=== PATIENT | female | born 1950 | race Caucasian/White ===

== ENCOUNTER 2018-11-18 11:38 | Emergency (ER) | payer MEDICARE, SELFPAY ==
[2018-11-18 11:39] VITALS: BP 136/74; PULSE 102; RESP 17; TEMP 36.9; O2SAT 95; BMI 22.4
--- NOTE | 2018-11-18 11:58 | EKG12_ITS ---
Test Reason : CP Blood Pressure : / mmHG Vent. Rate : 086 BPM Atrial Rate : 086 BPM P-R Int : 114 ms QRS Dur : 090 ms QT Int : 338 ms P-R-T Axes : 058 065 051 degrees QTc Int : 404 ms Normal sinus rhythm Normal ECG Confirmed by ALIA MG MD ([id number]), order editor LISA CHAN ([id number] on 11/21/2018 8:31:21 AM Referred By: AMANDA
--- NOTE | 2018-11-18 11:58 | RAD_ITS ---
STUDY: X-RAY CHEST REASON FOR EXAM: Female, 68 years old. Chest pain TECHNIQUE: PA and lateral views of the chest. COMPARISON: Prior comparison studies are not available for review at this time. FINDINGS: The lungs are clear and expanded. There is no demonstrated pleural abnormality. Normal size heart. Normal mediastinum and marina. Normal visualized pulmonary arteries. Normal visualized aortic arch and descending thoracic aorta. Normal visualized thoracic spine. Normal visualized ribs, clavicles, and shoulders. There is no demonstrated abnormality of the visualized soft tissue structures of the upper abdomen. RAD/Chest PA and Lateral IMPRESSION: Normal x-ray examination of the chest. Electronically Signed: Jez Pineda MD at 12:32 EST , Service support ,
--- NOTE | 2018-11-18 11:59 | ED.VISSUMM ---
- ER Visit Summary Date of Service: 11/18/18 Chief Complaint: Pain History of Present Illness: The patient is a 68 F who presents for 4 days of left-sided chest pain. Pain is been constant but waxes and wanes in intensity. It is an aching and a tightness. It is worse with exertion, such as when patient was running with her dog yesterday, also worse with bending forward, coughing and breathing. No associated shortness of breath, abdominal pain, radiation of the pain to the right chest or anywhere else, or any other complaints. Patient denies history of coronary artery disease. She does have history of hypertension and hypercholesterolemia. She smokes tobacco. She did not take any aspirin today. Patient also complains of unrelated frequent episodes of d?j? vu that are disturbing to her. Physical Examination: Vital signs: afebrile, hemodynamically stable, no hypoxia on room air General: well nourished, well developed, in no distress Skin: warm, dry, no rash, no pallor HEENT: normocephalic and atraumatic; PERRL, EOMI, moist mucous membranes Cardiovascular: regular rate and rhythm without murmurs, no peripheral edema, 2+ pulses all distal extremities, no chest wall tenderness, no rash Respiratory: No increased work of breathing, lungs are clear to auscultation bilaterally, no rales, rhonchi or wheezing Abdominal: Abdomen is soft, nontender with normoactive bowel sounds, no guarding or rebound, no masses MSK: Moves all extremities, no deformities, normal strength Neuro: Awake and alert, oriented ?4. No facial droop, sensation and motor function intact and symmetric Test Results: Abnormal Lab Results 11/18/18 11/18/18 12:15 12:15 WBC 7.7 RBC 4.54 Hgb 13.7 Hct 40.5 MCV 89.2 MCH 30.2 MCHC 33.8 RDW 12.2 RDW Differential 39.3 Plt Count 203 MPV 10.2 Immature Gran % (Auto) 0.300 Neut % (Auto) 64.6 Lymph % (Auto) 24.5 [place] % (Auto) 7.4 Eos % (Auto) 2.8 Baso % (Auto) 0.4 Absolute Neuts (auto) 5.0 Absolute Lymphs (auto) 1.90 Total Counted Not Reportable Sodium 141 Potassium 4.2 Chloride 107 Carbon Dioxide 28.0 Anion Gap 6 BUN 13 Creatinine 1.13 H Estim Creat Clear Calc 36.95 Est GFR (MDRD) Af Amer 62 Est GFR (MDRD) Non-Af 51 L BUN/Creatinine Ratio 11.5 Glucose 68 L Calcium 9.4 Troponin I < 0.015 TSH 0.54 Clinical Impression(s) from Imaging Studies Chest X-Ray 11/18/18 11:58 IMPRESSION: Normal x-ray examination of the chest. Electronically Signed: Jez Pineda MD at 12:32 EST , Service support , Medications Given Discontinued Medications Aspirin (Aspirin, Baby) 324 mg PO X1 STA Stop: 11/18/18 11:59 Last Admin: 11/18/18 12:14 Dose: 324 mg Sodium Chloride () 1,000 mls @ 1,000 mls/hr IV .Q1H ONE Stop: 11/18/18 12:57 Last Admin: 11/18/18 12:13 Dose: 1,000 mls/hr Emergency Department Course and Treatment: Patient was given 4 baby aspirin. EKG showed a sinus rhythm with no ST or T wave changes. Chest x-ray showed no acute process. Troponin negative. TSH was unremarkable. CBC and CMP showed no significant abnormalities. On reevaluation patient was pain-free. Because she has had this pain constantly for 4 days, it would be expected that there would be an EKG change or troponin bump if this were acute coronary syndrome. Because patient is having worsening of the symptoms with movement, deep breathing and leaning forward, this is most likely related to a chest wall inflammation. Patient will take [id number] anti-inflammatories as needed for any further pain. She will return if any worsening of symptoms. She was comfortable with this plan and was discharged home. She was encouraged to follow-up with her family doctor if she continues to have these episodes of frequent d?j? vu and they concern her. Treatment Plan: [] Disposition: [] Impression: Chest wall pain This note was generated with [employer] software. It may contain incorrect words, spelling, and punctuation that were not noted in review of the chart prior to signing ED Disposition - Plan for ED Patient: Disposition: Home or Assisted Living Instructions: ED Chest Pain Atypical Unkn Cause Referrals: Shirley Cortes MD [Primary Care Provider] - 1-2 Days if not improving Additional Instructions: Use ibuprofen or naproxen as needed for any further chest pain. If you have any worsening of your condition or any new concerning symptoms, please return immediately to the emergency department for another evaluation.
[2018-11-18 12:12] VITALS: BP 134/74; PULSE 88; RESP 14; O2SAT 96
[2018-11-18] MEDS: 0.9% Normal Saline 1,000 ML 1000 ML IV (12:13)
[2018-11-18] MEDS: Aspirin 81 MG TAB.CHEW 324 MG PO (12:14)
[2018-11-18 12:27] LABS: Basophil# 0.03 X10^3/uL; Basophil% 0.4 % (0-1); Eosinophil# 0.22 X10^3/uL; Eosinophils% 2.8 % (0-5); Hematocrit 40.5 % (37-47); Hemoglobin 13.7 g/dl (12.0-15.0); Lymphocyte % 24.5 % (19-41); Mean Corp Hgb Conc 33.8 g/gl (32-36); Mean Corpuscular Hgb 30.2 pg (27.0-32.0); Mean Corpuscular Volume 89.2 fL (81-99); Mean Platelet Vol. 10.2 fl (6.2-12.0); Monocyte# 0.57 X10^3/uL; Monocyte% 7.4 % (0-10); Neutrophil % 64.6 % (47-70); Platelet Count 203 K/mm3 (150-450); RBC Distribution Width CV 12.2 % (11.6-14.6); RBC Distribution Width SD 39.3 fl (35.1-43.9); Red Blood Count 4.54 M/mm3 (4.2-5.4); White Blood Count 7.7 K/mm3 (4.4-11.0)
[2018-11-18 12:28] LABS: POSITIVE COUNT NO; POSITIVE DIFFERENTIAL NO; POSITIVE MORPHOLOGY NO
[2018-11-18 12:46] LABS: Anion Gap 6 (5-15); BUN 13 mg/dL (7-18); BUN/Creat Ratio 11.5 RATIO (10-20); Calcium,Total 9.4 mg/dL (8.5-10.1); Chloride 107 mmol/L (98-107); Creatinine, Serum 1.13 mg/dL (0.55-1.02); EST Glomerular Filtration Rate 51 mL/min (>60); Est Glom Filt Rate - Afr Amer 62 mL/min (>60); Estimated Creatinine Clearance 36.95 ml/min; Glucose 68 mg/dL (74-106); Potassium 4.2 mmol/L (3.5-5.1); Sodium Level 141 mmol/L (136-145); Thyroid Stim Hormone (TSH) 0.54 uIU/mL (0.358-3.74)
[2018-11-18 13:05] VITALS: BP 119/62; PULSE 79; RESP 18; O2SAT 98
--- NOTE | 2018-11-18 13:15 | ED.DEP ---
ED Disposition - Plan for ED Patient: Disposition: Home or Assisted Living Instructions: ED Chest Pain Atypical Unkn Cause Referrals: Shirley Cortes MD [Primary Care Provider] - 1-2 Days if not improving Additional Instructions: Use ibuprofen or naproxen as needed for any further chest pain. If you have any worsening of your condition or any new concerning symptoms, please return immediately to the emergency department for another evaluation.
== END 2018-11-18 13:26 | disposition home or self-care (01) ==
PROVIDERS: Emergency Provider Emergency Medicine; Family Provider Internal Medicine; PCP Internal Medicine
DX: R07.89 Other chest pain (principal); I10 Essential (primary) hypertension; E78.00 Pure hypercholesterolemia, unspecified; F17.200 Nicotine dependence, unspecified, uncomplicated; Z79.899 Other long term (current) drug therapy
CPT/HCPCS: 71046; 80048; 84443; 84484; 85025; 93005; 96360; 99285; J7030

== ENCOUNTER → 2022-06-01 | Outpatient (CLI) | payer MEDICARE, SELFPAY ==
--- NOTE | 2022-06-01 09:40 | TELEMED_ITS ---
[facility] has confirmed receipt of a request for visit. This document confirms receipt of the order initiating the consult. To find the results of the consultation, please view the patient's reports for the scanned Telemed Consult.
== END | disposition home or self-care (01) ==
LOC: PSN 08:16
PROVIDERS: PCP Internal Medicine; Visit Provider Nurse Practitioner
DX: R40.4 Transient alteration of awareness (principal)
CPT/HCPCS: 95819

== ENCOUNTER 2023-02-19 13:57 | Emergency (ER) | payer MEDICARE, SELFPAY ==
[2023-02-19 13:58] VITALS: BP 148/70; PULSE 87; RESP 16; TEMP 36.1; O2SAT 100; BMI 22.5
--- NOTE | 2023-02-19 14:17 | EX.ED.DYSGE1 ---
HPI History of Present Illness Chief Complaint: Other, Pain/Inj Detail of Chief Complaint: Neck and left shoulder pain Informant: patient Narrative Narrative: Patient presents with neck and shoulder pain. Patient states she has chronic neck pain for years 3 days ago started having pain that radiating down her left arm and also down left posterior ribs. She is got some mild discomfort in the left side of her chest. Patient denies shortness of breath. She denies recent travel or surgery. She denies injury to her neck. Patient became concerned that this could be something related to her heart so she comes in for evaluation. She denies weakness to the extremities. No significant medical history other than possibly chronic kidney disease. PFSH PFSH Home Medications levothyroxine 75 mcg tablet 75 mcg PO DAILY 11/18/18 [History Last Taken Unknown] simvastatin 20 mg tablet 20 mg PO QHS 11/18/18 [History Last Taken Unknown] tramadol 50 mg tablet 50 mg PO Q6H PRN PRN Pain 11/18/18 [History Last Taken Unknown] Allergy/AdvReac Type Severity Reaction Status Date / Time No Known Allergies Allergy Verified 02/19/23 13:57 Social History Smoking Status: Current every day smoker tobacco type: cigarettes ROS ROS ED Review of Systems ROS Unobtainable: other Constitutional Constitutional ED: Reports lethargy; Denies chills, fever(s), sweats or weight loss Eyes Eyes: Denies blurry vision, change in vision or diplopia ENT ENT ED: Denies rhinorrhea or sore throat Cardiovascular Cardiovascular: Reports chest pain; Denies orthopnea or racing heartbeat Respiratory/Chest Respiratory/Chest: Denies cough, dyspnea, dyspnea on exertion, orthopnea or sputum Gastrointestinal Gastrointestinal: Denies abdominal pain, diarrhea, nausea or vomiting Genitourinary Genitourinary ED: Denies dysuria, hematuria or urinary frequency Musculoskeletal Musculoskeletal: Reports back pain and neck pain; Denies arthralgias or myalgias Integumentary Denies abscess, Abrasions or rash Neurologic Neurologic: Denies headache(s) or weakness Psychiatric Psychiatric: Denies anxiety, depression or suicidal thoughts Endocrine Endocrinology: Denies polydipsia, polyphagia or polyuria Hematologic/Lymphatic Hematologic/Lymphatic: Denies easy bleeding, easy bruising or lymphadenopathy Allergic/Immunologic Allergic/Immunologic ED: Denies mouth swelling, tongue swelling or urticaria EXAM Physical Exam Const Vital Signs: 02/19/23 13:58 Temperature 97.0 F L Temperature Source Temporal Pulse Rate 87 Respiratory Rate 16 Blood Pressure 148/70 H Blood Pressure Mean 96 Pulse Ox 100 Oxygen Delivery Method Room Air Positive well nourished and well developed General Appearance ED: well developed and NAD HEENT Reports TM's clear and moist mucous membranes normocephalic and atraumatic; Negative for trauma or tenderness Tympanic Membrane ED: Yes TM's clear Eyes PERRL and EOMs intact bilaterally General Eye ED: Negative for pale conjunctiva or scleral icterus Neck no lymphadenopathy, supple and no JVD Neck Narrative: Mild diffuse tenderness over the cervical paraspinal musculature on the left. No real tenderness on palpation of her back. General: Negative for tenderness Chest Wall inspection of chest normal and palpation of chest normal Chest: Negative for tenderness Resp normal respiratory effort and clear to auscultation bilaterally Effort and Inspection: Negative for respiratory distress or pain with movement Auscultation: Negative for rhonchi, wheezes or diminished lung sounds Cardio regular rate, regular rhythm, S1 normal heart sound, S2 normal heart sound and no murmurs Peripheral Pulses: pulses 2+ throughout GI normal to inspection, nondistended, normoactive bowel sounds, soft to palpation, non-tender, non-distended and no masses Back/Spine no CVA tenderness and no thoracic nor lumbar tenderness Extremity normal to inspection General Extremety ED: Negative for edema General Extremity: Negative for edema Neuro oriented x3, CN's II-XII intact bilaterally, no sensory deficits noted and gait normal Sensorium / Orientation: awake, alert, oriented to person, oriented to place and oriented to time Motor Exam: strength 5/5 throughout and strength abnormal Psych mental status grossly normal Skin no rashes or lesions noted and no wounds MDM MDM MDM Narrative Medical decision making narrative: Presents with chronic neck pain and now left arm pain. She also describes this pain in the left side of her back. Patient was concerned about cardiac etiology. Suspect likely symptoms related to cervical radiculopathy. Patient has not had any trauma to her neck. On arrival she had an EKG that showed a sinus rhythm. Patient CBC with differential is normal. Chemistries normal. Troponin normal. D-dimer is less than 0.27. Chest x-ray obtained interpreted by myself as no acute disease process without evidence of infiltrate or bony lytic lesions or pneumothorax. Clinically I suspect again pains related to radiculopathy. I will refer her to Dr. Talamantes for follow-up. She may require further imaging such as possibly MRI to evaluate further. Patient did not want a thing for pain for home. Lab Data Attestation: I reviewed the patient's lab results. Labs: Laboratory Results - last 24 hr 02/19/23 02/19/23 02/19/23 14:25 14:25 14:25 WBC 5.5 RBC 4.34 Hgb 12.9 Hct 39.1 MCV 90.1 MCH 29.7 MCHC 33.0 RDW Std Deviation 38.9 RDW Coeff of Emilee 11.9 Plt Count 204 MPV 10.3 Immature Gran % (Auto) 0.500 Neut % (Auto) 56.0 Lymph % (Auto) 31.0 [place] % (Auto) 6.9 Eos % (Auto) 4.5 Baso % (Auto) 1.1 H Absolute Neuts (auto) 3.1 Absolute Lymphs (auto) 1.71 Nucleated RBC % 0 D-Dimer Quant (PE/DVT) < 0.27 L Sodium 142 Potassium 4.1 Chloride 107 Carbon Dioxide 29.0 Anion Gap 6 BUN 10 Creatinine 1.05 H Estim Creat Clear Calc 37.62 Est GFR (MDRD) Af Amer 67 Est GFR (MDRD) Non-Af 55 L BUN/Creatinine Ratio 9.5 L Glucose 109 H Calcium 8.9 Troponin I High Sens 4 Radiography Diagnostic Testing: Clinical Impression(s) from Imaging Studies Chest X-Ray 02/19/23 14:40 IMPRESSION: Normal x-ray examination of the chest. Electronically Signed: Zan Rowe MD at 15:28 EDT , 1 view chest x-ray obtained interpreted by myself as no evidence of acute disease process such as infiltrate or pneumothorax or lytic lesions. Radiology in agreement. EKG Initial EKG: Attestation: I personally reviewed and interpreted this EKG as follows: Comments: Sinus rhythm with a rate of 76 bpm with no acute ST segment changes Discharge Plan Triage Chief Complaint: Other, Pain/Inj ED Provider: Braulio Cifuentes Dx/Rx/DC Orders Clinical Impression: Cervical radiculopathy Instructions: ED Neck Pain, ED Radiculopathy, Cervical Prescriptions: No Action tramadol 50 MG tablet 50 mg PO Q6H PRN PRN (Reason: Pain) levothyroxine 75 MCG tablet 75 mcg PO DAILY simvastatin 20 MG tablet 20 mg PO QHS Primary Care Provider: Shirley Cortes Referrals: Andry Talamantes DO [Med Staff - Active Staff] - 3-5 Days Shirley Cortes MD [Primary Care Provider] - Disposition Disposition: Home, Self Care
[2023-02-19] MEDS: 0.9% Normal Saline 1,000 ML 150 ML IV (14:28)
[2023-02-19] MEDS: Aspirin 81 MG TAB.CHEW 324 MG PO (14:28)
[2023-02-19 14:30] LABS: Absolute Lymphocyte Count 1.71 X10^3/uL (0.83-4.51); Absolute Neutrophil Count 3.1 X10^3/uL (2.0-7.7); Basophil# 0.06 X10^3/uL; Basophil% 1.1 % (0-1); Eosinophil# 0.25 X10^3/uL; Eosinophils% 4.5 % (0-5); Hematocrit 39.1 % (37-47); Hemoglobin 12.9 g/dL (12.0-15.0); Lymphocyte # 1.71 X10^3/ul (0.83-4.51); Mean Corpuscular Hgb 29.7 pg (27.0-32.0); Mean Corpuscular Volume 90.1 fL (81-99); Mean Platelet Vol. 10.3 fl (6.2-12.0); Monocyte# 0.38 X10^3/uL; Monocyte% 6.9 % (0-10); NRBC Flagged by Analyzer 0 % (0-5); Neutrophil # 3.09 X10^3/uL (2.7-7.7); Platelet Count 204 K/mm3 (150-450); RBC Distribution Width CV 11.9 % (11.6-14.6); RBC Distribution Width SD 38.9 fl (35.1-43.9); Red Blood Count 4.34 M/mm3 (4.2-5.4); White Blood Count 5.5 K/mm3 (4.4-11.0)
--- NOTE | 2023-02-19 14:40 | RAD_ITS ---
STUDY: X-RAY CHEST REASON FOR EXAM: Female, 72 years old. chest pain TECHNIQUE: Single AP portable view of the chest. COMPARISON: 11/18/2018. FINDINGS: The lungs are clear and expanded. There is no demonstrated pleural abnormality. Normal size heart. Normal mediastinum and mar[place]. Normal visualized pulmonary arteries. Normal visualized aortic arch and descending thoracic aorta. Normal visualized thoracic spine. Normal visualized ribs, clavicles, and shoulders. There is no demonstrated abnormality of the visualized soft tissue structures of the upper abdomen. RAD/Chest 1 View (Portable) IMPRESSION: Normal x-ray examination of the chest. Electronically Signed: Zan Rowe MD at 15:28 EDT ,
[2023-02-19 14:44] LABS: D-Dimer Quantitative (DVT/PE) < 0.27 FEU/ug/m (0.27-0.49)
[2023-02-19 14:52] LABS: Anion Gap 6 (5-15); BUN 10 mg/dL (7-18); BUN/Creat Ratio 9.5 RATIO (10-20); Calcium,Total 8.9 mg/dL (8.5-10.1); Chloride 107 mmol/L (98-107); Creatinine, Serum 1.05 mg/dL (0.55-1.02); EST Glomerular Filtration Rate 55 mL/min (>60); Est Glom Filt Rate - Afr Amer 67 mL/min (>60); Estimated Creatinine Clearance 37.62 ml/min; Glucose 109 mg/dL (74-106); Potassium 4.1 mmol/L (3.5-5.1); Sodium Level 142 mmol/L (136-145); Troponin-I HS 4 pg/mL (3.0-54.0)
--- NOTE | 2023-02-19 15:32 | EKG12_ITS ---
Test Reason : shoulder pain Blood Pressure : / mmHG Vent. Rate : 076 BPM Atrial Rate : 076 BPM P-R Int : 122 ms QRS Dur : 082 ms QT Int : 370 ms P-R-T Axes : 060 044 036 degrees QTc Int : 416 ms Normal sinus rhythm Normal ECG Confirmed by MUNA MICHELE, MK ([id number]), editor greeting card SATISH SAMPSON ([id number]) on 02/21/2023 11:29:29 A M Referred By: Jak Confirmed By:NINOSKA TORO MD
== END 2023-02-19 15:49 | disposition home or self-care (01) ==
PROVIDERS: Emergency Provider Emergency Medicine; PCP Internal Medicine; Visit Provider Emergency Medicine
DX: M54.12 Radiculopathy, cervical region (principal); G89.29 Other chronic pain; M25.512 Pain in left shoulder; F17.210 Nicotine dependence, cigarettes, uncomplicated; Z79.890 Hormone replacement therapy; Z79.899 Other long term (current) drug therapy
CPT/HCPCS: 71045; 80048; 84484; 85025; 85379; 93005; 96360; 99284; J7030; A4216

== ENCOUNTER 2024-09-28 09:39 | Emergency (ER) | payer MEDICARE, SELFPAY ==
[2024-09-28] VITALS (8 sets, daily range): BP systolic 122–154; BP diastolic 60–72; PULSE 77–102; RESP 18–26; TEMP 37; O2SAT 95–99; BMI 22.4
--- NOTE | 2024-09-28 09:46 | EKG12_ITS ---
Test Reason : CHEST PAIN Blood Pressure : */* mmHG Vent. Rate : 93 BPM Atrial Rate : 93 BPM P-R Int : 112 ms QRS Dur : 82 ms QT Int : 334 ms P-R-T Axes : 60 63 56 degrees QTcB Int : 415 ms Normal sinus rhythm Normal ECG Confirmed by SAURAV MICHELE, ALIA ([id number]), film editor ZORA REAL ([id number]) on 10/01/2024 6:35:02 AM Referred By: Confirmed By: ALIA MG MD
--- NOTE | 2024-09-28 09:47 | EDS_ITS ---
HPI History of Present Illness Chief Complaint: Chest Pain Narrative Narrative: Patient is a 73-year-old female past medical history of hypercholesteremia, hypothyroidism, emphysema who presents to the emergency department with a chief complaint of left-sided rib pain. Patient states about 4 days ago she noted that she bent over to pick something up out of the trash can and noted that this is when her pain started. States that it has been persistent since then however noted that it did progressively get worse. States that it radiated to her back and her left arm and developed some nausea and diarrhea as well. Patient denies any recent sick contacts. Patient states that her pain did seem to worsen while she was driving here. [facility] Medical History (Updated 09/28/24 @ 13:[address] Charles Graham DO) Hypothyroid High cholesterol Home Medications ?Medication ?Instructions ?Recorded ?Last Taken ?Type levothyroxine 75 mcg tablet 75 mcg PO DAILY 11/18/18 Unknown History simvastatin 20 mg tablet 20 mg PO QHS 11/18/18 Unknown History tramadol 50 mg tablet 50 mg PO Q6H PRN PRN Pain 11/18/18 Unknown History cholecalciferol (vitamin D3) 50 50 mcg PO DAILY 09/28/24 Unknown History mcg (2,000 unit) tablet (Vitamin D3) lidocaine 5 % topical patch 1 patch topical DAILY #15 ea 09/28/24 Unknown Rx (Lidoderm) Allergy/AdvReac Type Severity Reaction Status Date / Time No Known Allergies Allergy Verified 09/28/24 09:39 Social History Smoking Status: Current every day smoker tobacco type: cigarettes ROS ROS ED ROS Narrative Constitutional: Denies any fevers, chills, headaches, lightness, dizziness Eyes: Denies change in vision double vision blurry vision Cardiovascular: Complains of chest discomfort as noted above denies palpitations Respiratory: States that she has a chronic cough but denies any increased sputum production denies wheezing or shortness of breath Abdomen: Complains of nausea and diarrhea as noted above denies any abdominal pain : Denies any urinary symptoms Neurological: Denies any numbness, weakness, tingling Musculoskeletal: Complains of back pain as noted above Skin: Denies any rashes or lesions EXAM Physical Exam Narrative Exam Narrative: General: Patient lying in bed rest comfortably did not appear to be in acute distress Head: Atraumatic, normocephalic Eyes: PERRL body, EOMI biotic no conjunctival injection noted Neck: Soft, supple, trachea midline Cardiovascular: 9 patient was tachycardic with a regular rhythm no murmurs gallops rubs noted Respiratory: Clear to auscultation bilaterally no rales rhonchi or wheezes noted Abdomen: Soft, nondistended, nontender to palpation, bowel sounds present x 4 Extremities: +5/5 strength noted in the bilateral upper and lower extremities, radial pulses +2/4 in the bilateral upper extremities, no pedal edema on exam Neurological: Patient following commands knew that she was at [facility] year is 2023 Skin: Warm, dry, intact no rashes or lesions noted Const Vital Signs: 09/28/24 09:39 09/28/24 09:51 09/28/24 10:39 Temperature 98.6 F Temperature Source Oral Pulse Rate 102 H 77 Respiratory Rate 18 22 H Blood Pressure 154/69 H 133/72 H Blood Pressure Mean 97 92 Pulse Ox 97 97 Oxygen Delivery Method Room Air Room Air 09/28/24 10:42 09/28/24 10:45 09/28/24 11:00 Temperature Temperature Source Pulse Rate 78 80 92 Respiratory Rate 21 H 23 H 26 H Blood Pressure 124/60 H Blood Pressure Mean 79 Pulse Ox Oxygen Delivery Method 09/28/24 12:00 09/28/24 13:00 Temperature Temperature Source Pulse Rate 89 Respiratory Rate 19 H Blood Pressure 126/64 H 122/71 H Blood Pressure Mean 84 88 Pulse Ox 95 99 Oxygen Delivery Method MDM MDM MDM Narrative Medical decision making narrative: Patient is a 73-year-old female who presented to the emergency department the chief complaint of left-sided chest discomfort, radiating to her back and left arm. On the differential diagnose includes but limited to ACS, rib fracture, pneumonia, pneumothorax. Once workup is obtained reviewed she will be reevaluated. Patient be given Zofran for nausea. Patient's CBC was reviewed and showed no evidence leukocytosis white blood count normal 7.1, hemoglobin stable 13.7, platelet count normal at 182. Patient sodium normal at 140, potassium normal at 4.3, creatinine was 1.18 she has some underlying chronic kidney disease based on previous blood draw. Patient's troponin was normal at less than 3 and a delta troponin was obtained at 4. Patient's EKG was reviewed and independently interpreted by myself showed sinus rhythm with a rate of 93 bpm. Patient's proBNP was normal 18. Patient's chest x-ray reviewed by myself and by radiology which showed no acute cardiopulmonary processes. At this point time have low suspicion that this is cardiac in nature as her pain is exacerbated with movement and this all started after bending into a trash can and her pain has been persistent for the last several days. She states that she has not had a stress test in the outpatient setting in a while will discuss case with cardiology. Discussed case with on-call advanced manufacturing technician Dr. Stewart who states that the patient should follow-up with her primary care physician and have a stress test obtained. She was advised to return with worsening symptoms or other concerns. She is agreeable this plan as well as for member bedside she would like to go home at this point time. Patient was ambulated tolerated this well no evidence hypoxia felt at her baseline. All question concerns answered she was discharged home in stable condition. Lab Data Labs: Laboratory Results - last 24 hr 09/28/24 09/28/24 10:00 12:10 WBC 7.1 RBC 4.59 Hgb 13.7 Hct 40.0 MCV 87.1 MCH 29.8 MCHC 34.3 RDW Std Deviation 37.4 RDW Coeff of [place] 11.9 Plt Count 182 MPV 10.9 Immature Gran % (Auto) 0.600 Neut % (Auto) 67.0 Lymph % (Auto) 20.7 [place] % (Auto) 7.7 Eos % (Auto) 3.0 Baso % (Auto) 1.0 Absolute Neuts (auto) 4.7 Absolute Lymphs (auto) 1.46 Nucleated RBC % 0 Sodium 140 Potassium 4.3 Chloride 108 H Carbon Dioxide 28.0 Anion Gap 5 BUN 13 Creatinine 1.18 H Estim Creat Clear Calc 33.00 Est GFR (MDRD) Af Amer 58 L Est GFR (MDRD) Non-Af 48 L BUN/Creatinine Ratio 11.0 Glucose 92 Calcium 9.7 Troponin I High Sens < 3 L 4 B-Natriuretic Peptide 18.0 Radiography Diagnostic Testing: Clinical Impression(s) from Imaging Studies Chest X-Ray 09/28/24 10:20 IMPRESSION: No radiographic evidence of acute cardiopulmonary disease. Electronically Signed: Max Bah MD at 10:48 EST , Discharge Plan Triage Chief Complaint: Chest Pain ED Provider: Charles Graham Dx/Rx/DC Orders Clinical Impression: Chest pain Prescriptions: New lidocaine [Lidoderm] 5 % adhesive patch,medicated 1 patch topical DAILY Qty: 15 0RF Rx Instructions: leave on most painful area for up to 12 hrs No Action tramadol 50 MG tablet 50 mg PO Q6H PRN PRN (Reason: Pain) levothyroxine 75 MCG tablet 75 mcg PO DAILY simvastatin 20 MG tablet 20 mg PO QHS cholecalciferol (vitamin D3) [Vitamin D3] 50 mcg (2,000 unit) tablet 50 mcg PO DAILY Primary Care Provider: Shirley Cortes Referrals: Shirley Cortes MD [Primary Care Provider] - Activity Restrictions/Additional Instructions: Follow-up with your primary care physician in the outpatient setting. Have them order a outpatient stress test. Return with worsening symptoms or any other concerns. Rotate Tylenol and ibuprofen [id number] and use the lidocaine patch as prescribed. Print Language: Chinese Disposition Disposition: Home, Self Care
[2024-09-28] MEDS: 0.9% Normal Saline (1000mL) 1,000 ML 999 ML IV (10:02)
[2024-09-28] MEDS: Ondansetron 4 MG/2 ML Vial IV (10:03)
[2024-09-28 10:06] LABS: Absolute Lymphocyte Count 1.46 X10^3/uL (0.83-4.51); Absolute Neutrophil Count 4.7 X10^3/uL (2.0-7.7); Basophil# 0.07 X10^3/uL; Eosinophil# 0.21 X10^3/uL; Hemoglobin 13.7 g/dL (12.0-15.0); Lymphocyte # 1.46 X10^3/ul (0.83-4.51); Lymphocyte % 20.7 % (19-41); Mean Corp Hgb Conc 34.3 g/dL (32-36); Mean Corpuscular Hgb 29.8 pg (27.0-32.0); Mean Corpuscular Volume 87.1 fL (81-99); Mean Platelet Vol. 10.9 fl (6.2-12.0); Monocyte# 0.54 X10^3/uL; Monocyte% 7.7 % (0-10); NRBC Flagged by Analyzer 0 % (0-5); Neutrophil # 4.73 X10^3/uL (2.7-7.7); Platelet Count 182 K/mm3 (150-450); RBC Distribution Width CV 11.9 % (11.6-14.6); RBC Distribution Width SD 37.4 fl (35.1-43.9); Red Blood Count 4.59 M/mm3 (4.2-5.4); White Blood Count 7.1 K/mm3 (4.4-11.0)
--- NOTE | 2024-09-28 10:20 | RAD_ITS ---
INDICATION: right rib pain EXAMINATION/TECHNIQUE: X-RAY - XR Chest 2 Views COMPARISON: Prior study dated: 02/19/2023 FINDINGS: LINES/DEVICES: None. LUNGS: No consolidation, edema or effusion. No pneumothorax. MEDIASTINUM AND CARDIOVASCULAR STRUCTURES: Cardiac silhouette not enlarged. Central airways and mediastinal contour are unremarkable. BONES AND SOFT TISSUES: Unremarkable. RAD/Chest PA and Lateral IMPRESSION: No radiographic evidence of acute cardiopulmonary disease. Electronically Signed: Max Bah MD at 10:48 EST ,
[2024-09-28 10:27] LABS: Anion Gap 5 (5-15); BUN 13 mg/dL (7-18); Calcium,Total 9.7 mg/dL (8.5-10.1); Chloride 108 mmol/L (98-107); Creatinine, Serum 1.18 mg/dL (0.55-1.02); EST Glomerular Filtration Rate 48 mL/min (>60); Est Glom Filt Rate - Afr Amer 58 mL/min (>60); Glucose 92 mg/dL (74-106); Potassium 4.3 mmol/L (3.5-5.1); Sodium Level 140 mmol/L (136-145); Troponin-I HS (w/2H Reflex) < 3 pg/mL (3.0-54.0)
[2024-09-28 12:03] LABS: Reflex Troponin-HS? (from REC) Y
[2024-09-28 12:41] LABS: Troponin-I HS 4 pg/mL (3.0-54.0)
== END 2024-09-28 13:22 | disposition home or self-care (01) ==
PROVIDERS: Emergency Provider Emergency Medicine; PCP Internal Medicine; Visit Provider Emergency Medicine
DX: R07.89 Other chest pain (principal); E78.00 Pure hypercholesterolemia, unspecified; F17.210 Nicotine dependence, cigarettes, uncomplicated; Z79.899 Other long term (current) drug therapy
CPT/HCPCS: 71046; 80048; 83880; 84484; 85025; 93005; 99284; A4216; J2405

== ENCOUNTER → 2025-01-08 | Outpatient (CLI) | payer MEDICARE, SELFPAY ==
[2025-01-08 17:05] LABS: Absolute Lymphocyte Count 1.95 X10^3/uL (0.83-4.51); Absolute Neutrophil Count 4.2 X10^3/uL (2.0-7.7); Basophil# 0.05 X10^3/uL; Basophil% 0.7 % (0-1); Eosinophil# 0.18 X10^3/uL; Eosinophils% 2.6 % (0-5); Hematocrit 39.8 % (37-47); Hemoglobin 13.6 g/dL (12.0-15.0); Lymphocyte # 1.95 X10^3/ul (0.83-4.51); Lymphocyte % 28.3 % (19-41); Mean Corp Hgb Conc 34.2 g/dL (32-36); Mean Corpuscular Hgb 29.4 pg (27.0-32.0); Mean Corpuscular Volume 86.1 fL (81-99); Mean Platelet Vol. 10.5 fl (6.2-12.0); Monocyte# 0.51 X10^3/uL; Monocyte% 7.4 % (0-10); NRBC Flagged by Analyzer 0 % (0-5); Neutrophil # 4.18 X10^3/uL (2.7-7.7); Neutrophil % 60.7 % (47-70); Platelet Count 215 K/mm3 (150-450); RBC Distribution Width CV 12.5 % (11.6-14.6); RBC Distribution Width SD 39.4 fl (35.1-43.9); Red Blood Count 4.62 M/mm3 (4.2-5.4); White Blood Count 6.9 K/mm3 (4.4-11.0)
[2025-01-08 18:09] LABS: ALB/GLOB Ratio 1.7 RATIO (0.9-2.4); AST(SGOT) 30 U/L (<=31); Alanine Aminotransfer ALT/SGPT 22 U/L (<=34); Albumin, Serum 4.6 g/dL (3.4-4.8); Alkaline Phosphatase 93 U/L (35-104); Anion Gap 11 (5-15); BUN 10 mg/dL (4-19); BUN/Creat Ratio 8.8 RATIO (10-20); Calcium,Total 9.9 mg/dL (7.6-11.0); Chloride 105 mmol/L (98-108); Cholesterol 212 mg/dL (<=200); Creatinine, Serum 1.13 mg/dL (0.70-1.20); EST Glomerular Filtration Rate 52 (>60); Globulin 2.8 g/dL (2.2-4.2); Glucose 83 mg/dL (70-99); Hepatitis C Antibody Nonreactive (Nonreactive); High Density Lipoprotein 63 mg/dL; Low Density Lipoprotein Calc. 102 mg/dL; Potassium 4.6 mmol/L (3.3-5.1); Protein, Total 7.4 g/dL (5.9-8.4); Sodium Level 139 mmol/L (133-145); Triglycerides 237 mg/dL; Very Low Density Lipoprotein 47 mg/dL (5-40); Vitamin B12 333 pg/mL (180-914); Vitamin D,25 Hydroxy 49.7 ng/mL (30-100); cholesterol:hdl ratio screen 3.37
[2025-01-08 18:44] LABS: FOLATES,SERUM (FOLIC ACID) > 40.00 ng/mL (4.60-34.80)
[2025-01-08 19:37] LABS: Syphilis Antibodies Nonreactive (Nonreactive)
== END | disposition home or self-care (01) ==
LOC: LAB 16:16
PROVIDERS: PCP Family Medicine Geriatric Medicine; Referring Provider Family Medicine Geriatric Medicine; Visit Provider Family Medicine Geriatric Medicine
DX: N18.31 Chronic kidney disease, stage 3a (principal); E78.5 Hyperlipidemia, unspecified; E03.9 Hypothyroidism, unspecified; Z13.89 Encounter for screening for other disorder; E55.9 Vitamin D deficiency, unspecified; G31.84 Mild cognitive impairment of uncertain or unknown etiology; W57.XXXA Bitten or stung by nonvenomous insect and other nonvenomous arthropods, initial encounter
CPT/HCPCS: 36415; 80053; 80061; 82306; 82607; 82746; 84443; 85025; 86617; 86780; 86803